=== PATIENT | female | born 1985 | race African-American/Black ===

== ENCOUNTER 2017-11-24 12:09 | Inpatient (IN) ==
[2017-11-24] MEDS ORDERED: CITRIC ACID/SODIUM CITRATE 30 ML UDCUP PO ONE (12:23)
[2017-11-24] MEDS ORDERED: FAMOTIDINE 20 MG/2 ML VIAL IV ONE (12:23)
[2017-11-24] MEDS ORDERED: OXYTOCIN 10 UNIT/ML VIAL IM ONE (12:26)
[2017-11-24] MEDS ORDERED: OXYTOCIN/LR 30 UNIT/1,000 ML BAG IV ONE (12:26)
[2017-11-24 12:47] LABS: Basophils % 0.2 % (0.0-0.8); Eosinophils % 0.5 % (0.00-10.9); Hematocrit 37.3 VOL% (35.7-47.0); Hemoglobin 12.2 GM/DL (12.0-16.0); Immature Granulocytes % 0.3 %; Immature Granulocytes Absolute 0.02 #; Lymphocytes # 1.5 10*3/uL (1.4-4.0); Lymphocytes % 23.8 % (21.3-54.2); Mean Corpuscular HGB Conc 32.7 GM/DL (32-36); Mean Corpuscular Hemoglobin 28 PG (27-34); Mean Corpuscular Volume 85.4 FL (87-102); Mean Platelet Volume 9.8 FL (9.6-12.0); Monocytes # 0.3 10*3/uL (0.11-0.8); Monocytes % 5.3 % (1.7-12.7); Neutrophils # 4.5 10*3/uL (1.4-7.4); Neutrophils % 69.9 % (38.7-73.9); Platelet Count 276 T/CUMM (130-400); Red Blood Count 4.37 MC/CUMM (3.8-5.5); Red Cell Distribution Width 15.9 % (9.3-17.3); White Blood Count 6.4 T/CUMM (4-12)
[2017-11-24] MEDS: LACTATED RINGERS 1,000 ML IV SCH ×2 (12:58→15:34)
[2017-11-24 13:10] LABS: INR 0.9; PT Patient Result 9.4 SECS; Partial Thromboplastin Time 26.7 SECS (0-40)
[2017-11-24 13:23] LABS: Albumin 2.9 G/DL (3.4-5.0); Bilirubin,Total 0.5 MG/DL (0.2-1.0); Calcium 9.3 MG/DL (8.5-10.1); Osmolality,Calculated 270.8 MOS/KG (273-304); Potassium 3.8 MMOL/L (3.5-5.1)
[2017-11-24 18:58] LABS: Cord Arterial Blood HCO3 21.1 MMOL/L
[2017-11-24 19:01] LABS: Cord Venous Blood HCO3 22.4 MMOL/L; Cord Venous Blood PO2 24.5
[2017-11-24 19:02] LABS: Apearance,Urine CLEAR (Clear); Bacteria,Urine Occasional /HPF (Few); Bilirubin,Urine Negative (Negative); Blood, Urine Negative (Negative); Glucose,Urine (UA) Negative (Negative); Ketones,Urine 80 mg/dL (Negative); Mucus,Urine Occasional /LPF (Occasional); Nitrite,Urine Negative (Negative); Protein,Urine Negative; Squamous Epithelial Cell,Urine Occasional /HPF (0-10); Urine Color Yellow (Yellow); Urine Specific Gravity 1.018 (1.001-1.035); Urine Urobilinogen < 2.0 EU/DL (0.2-1.0); WBC,Urine <1 /HPF (0-6)
[2017-11-24] MEDS ORDERED: MORPHINE 10 MG/10 ML VIAL ONE (19:16)
[2017-11-24] MEDS ORDERED: ONDANSETRON 4 MG/2 ML VIAL ONE (19:17)
[2017-11-24] MEDS ORDERED: fentaNYL 100 MCG/2 ML VIAL ONE (19:17)
[2017-11-24] MEDS ORDERED: LACTATED RINGERS 1,000 ML IV ONE (19:22)
[2017-11-24] MEDS ORDERED: PHENYLEPHRINE 10 MG/1 ML VIAL IV ONE (19:22)
[2017-11-24] MEDS ORDERED: SIMETHICONE CHEW 80 MG TABLET PO PRN (19:25)
[2017-11-24] MEDS ORDERED: RHO(D) IMMUNE GLOBULIN 300 MCG SYRINGE IM ONE (19:25)
[2017-11-24] MEDS ORDERED: OXYTOCIN/LR 20 UNIT/1,000 ML BAG IV ONE (19:25)
[2017-11-24] MEDS ORDERED: ONDANSETRON 4 MG/2 ML VIAL IV PRN (19:25)
[2017-11-24] MEDS ORDERED: MAGNESIUM HYDROXIDE SUSP 30 ML UDCUP PO PRN (19:25)
[2017-11-24] MEDS ORDERED: ACETAMINOPHEN 325 MG TABLET PO PRN (19:25)
[2017-11-24] MEDS ORDERED: LACTATED RINGERS 1,000 ML IV SCH (19:30)
[2017-11-25] MEDS: DOCUSATE SODIUM 100 MG CAPSULE PO SCH ×3 (01:25→21:05)
[2017-11-25] MEDS: ceFAZolin 1,000 MG in SYRINGE 1 EACH IV SCH ×2 (02:23→09:34)
[2017-11-25 08:48] LABS: Basophils % 0.1 % (0.0-0.8); Eosinophils % 0.5 % (0.00-10.9); Hematocrit 36.7 VOL% (35.7-47.0); Immature Granulocytes % 0.2 %; Immature Granulocytes Absolute 0.02 #; Lymphocytes # 1.4 10*3/uL (1.4-4.0); Lymphocytes % 17.7 % (21.3-54.2); Mean Corpuscular HGB Conc 32.7 GM/DL (32-36); Mean Corpuscular Hemoglobin 28 PG (27-34); Mean Corpuscular Volume 85.7 FL (87-102); Mean Platelet Volume 9.6 FL (9.6-12.0); Monocytes # 0.6 10*3/uL (0.11-0.8); Neutrophils % 74.5 % (38.7-73.9); Platelet Count 240 T/CUMM (130-400); Red Blood Count 4.28 MC/CUMM (3.8-5.5); Red Cell Distribution Width 15.8 % (9.3-17.3)
[2017-11-25] MEDS: MULTIVITAMIN (PRENATAL) TABLET PO SCH (08:55)
[2017-11-25] MEDS ORDERED: diphenhydrAMINE CAP 25 MG CAPSULE PO PRN (15:45)
[2017-11-25] MEDS: IBUPROFEN 800 MG TABLET PO PRN (17:47)
[2017-11-26] MEDS: IBUPROFEN 800 MG TABLET PO PRN (07:56)
[2017-11-26] MEDS: MULTIVITAMIN (PRENATAL) TABLET PO SCH (09:02)
[2017-11-26] MEDS: DOCUSATE SODIUM 100 MG CAPSULE PO SCH (09:02)
[2017-11-26] MEDS ORDERED: MAGNESIUM CITRATE 300 ML BOTTLE PO ONE (10:50)
[2017-11-26 11:51] VITALS: BP 144/85
[2017-11-26] MEDS ORDERED: BISACODYL 10 MG SUPP RECTAL ONE (14:45)
== END 2017-11-26 17:30 | disposition home or self-care (01) | DRG 540 ==
LOC: N.LDOUT 12:09 → N.LD 12:11 → N.OB 22:00
PROVIDERS: ADMIT Obstetrics & Gynecology; ATTEND Obstetrics & Gynecology
PROC: LDCSECT (ICD-10-PCS; 2017-11-24 18:00)

== ENCOUNTER 2018-01-08 14:33 | Inpatient (IN) ==
[2018-01-11 21:10] VITALS: BP 131/81
== END 2018-01-11 21:45 | disposition home health service (06) | DRG 951 ==
LOC: N.ED 14:33 → N.EDINP 17:58 → N.2E 18:23
PROVIDERS: ADMIT Obstetrics & Gynecology; ATTEND Obstetrics & Gynecology